=== PATIENT | female | born 1945 | race Caucasian/White ===

== ENCOUNTER → 2023-10-30 13:12 | Outpatient (REF) | payer MEDICARE, OTHER, SELFPAY | LOC: WDC 13:12 | PROVIDERS: ATTENDING PHYSICIAN Physician Assistant Medical | DX: Z12.31 Encounter for screening mammogram for malignant neoplasm of breast (principal) | CPT/HCPCS: 77063; 77067 ==

== ENCOUNTER → 2024-10-31 12:33 | Outpatient (REF) | payer MEDICARE, OTHER, SELFPAY | LOC: WDC 12:33 | PROVIDERS: ATTENDING PHYSICIAN Physician Assistant Medical | DX: Z12.31 Encounter for screening mammogram for malignant neoplasm of breast (principal) | CPT/HCPCS: 77063; 77067 ==